=== PATIENT | female | born 1940 | race Caucasian/White ===

== ENCOUNTER 2017-03-19 19:51 | Emergency (ER) | payer MEDICARE ==
[2017-03-19 21:22] LABS: Bilirubin Negative (Negative); Blood, Urine Negative (Negative); Clarity CLEAR (Clear); Glucose, Urine (Dipstick) Negative (Negative); Leukocyte Negative (Negative); Nitrite Negative (Negative); Protein, Urine (Dipstick) Negative (Neg-Trace); Specific Gravity, Urine 1.018 (1.002-1.036); Urobilinogen 0.2 mg/dL (0.2-1.0); pH, Urine 5.5 (5.0-9.0)
[2017-03-19 21:55] LABS: #Basophils 0.1 thou/uL (0.0-0.2)
[2017-03-19] MEDS ORDERED: Ondansetron ODT 4 MG TAB ONE (21:56)
[2017-03-19 22:04] LABS: #Eosinphils 0.1 thou/uL (0.0-0.7); #Lymphocytes 2.6 thou/uL (1.20-3.40); #Monocytes 0.4 thou/uL (0.11-0.59); #Neutrophils 6.8 thou/uL (1.40-6.50); %Basophils 0.9 % (0.0-1.0); %Eosinophils 1.5 % (0.0-10.0); %Lymphocytes 25.9 % (21.0-51.0); %Monocytes 4.4 % (0.0-10.0); %Neutrophils 67.3 % (42.0-75.0); Mean Corpuscular Hemoglobin 29.5 pg (27.0-31.0); Mean Corpuscular Volume 92.2 fl (81.0-99.0); Mean Platelet Volume 8.7 fL (7.4-10.4); Platelet Count 249 thou/uL (130-400); RBC Distribution Width 12.7 % (11.5-14.5)
[2017-03-19 22:17] LABS: ALT (SGPT) 11 U/L (8-55); AST (SGOT) 13 U/L (5-34); Albumin 4.4 g/dL (3.4-4.8); Alkaline Phosphatase 126 U/L (40-150); Anion Gap 17 mmol/L (10-20); BUN (Urea Nitrogen) 22 mg/dL (9.8-20.1); Bilirubin, Total 0.3 mg/dL (0.2-1.2); Calc. Creatinine Clearance 0 mL/min (70-130); Carbon Dioxide 26 mmol/L (23-31); Chloride 102 mmol/L (98-107); Estimated GFR-MDRD 18; Globulin 3.2 g/dL (2.4-3.5); Glucose 105 mg/dL (83-110); Potassium 3.8 mmol/L (3.5-5.1); Protein, Total 7.6 g/dL (6.0-8.3); Sodium 141 mmol/L (136-145)
== END 2017-03-19 23:00 | disposition left against medical advice (07) ==
LOC: ERS 19:51
DX: Z53.21 Procedure and treatment not carried out due to patient leaving prior to being seen by health care provider (principal)
CPT/HCPCS: 36415; 80053; 81003; 85025; Q0162

== ENCOUNTER 2018-09-18 17:28 | Emergency (ER) | payer MEDICARE ==
[2018-09-18 18:56] LABS: #Eosinphils 0.2 thou/uL (0.0-0.7); #Lymphocytes 1.9 thou/uL (1.20-3.40); #Monocytes 0.4 thou/uL (0.11-0.59); #Neutrophils 7.4 thou/uL (1.40-6.50); %Basophils 0.4 % (0.0-1.0); %Eosinophils 1.6 % (0.0-10.0); %Monocytes 4.4 % (0.0-10.0); %Neutrophils 74.5 % (42.0-75.0); Hemoglobin 13.5 g/dL (12.0-16.0); Mean Corpuscular HGB CONC 31.6 g/dL (32.0-36.0); Mean Corpuscular Volume 91.8 fL (78.0-98.0); Mean Platelet Volume 8.4 fL (7.4-10.4); Platelet Count 221 thou/uL (130-400); RBC Distribution Width 12.3 % (11.5-14.5); Red Blood Cell (RBC) Count 4.67 mill/uL (4.20-5.40); White Blood Cell (WBC) Count 9.9 thou/uL (4.8-10.8)
[2018-09-18 19:20] LABS: ALT (SGPT) 8 U/L (8-55); AST (SGOT) 11 U/L (5-34); Albumin 3.9 g/dL (3.4-4.8); Alkaline Phosphatase 107 U/L (40-150); Anion Gap 12 mmol/L (10-20); BUN (Urea Nitrogen) 26 mg/dL (9.8-20.1); Bilirubin, Total 0.2 mg/dL (0.2-1.2); Calc. Creatinine Clearance 0 mL/min (70-130); Calcium 9.7 mg/dL (7.8-10.44); Carbon Dioxide 25 mmol/L (23-31); Chloride 107 mmol/L (98-107); Estimated GFR-MDRD 27; Globulin 2.6 g/dL (2.4-3.5); Glucose 93 mg/dL (83-110); Protein, Total 6.5 g/dL (6.0-8.3); Sodium 140 mmol/L (136-145)
[2018-09-18] MEDS ORDERED: HYDROcodone/Acetaminophen 5/325 mg Tablet ONE (19:38)
--- NOTE | 2018-09-18 19:48 | ULT ---
VENOUS DOPPLER ULTRASOUND OF THE RIGHT LOWER EXTREMITY: 09/18/18 HISTORY: Right lower extremity pain. TECHNIQUE: Morales scale ultrasound with color flow and spectral Doppler imaging of the deep venous system of the r ight lower extremity was performed. FINDINGS: There is good flow, compression, and augmentation noted in the right common femoral, femoral, deep fe moral, popliteal, posterior tibial, peroneal and greater saphenous veins. IMPRESSION: No evidence of DVT in the right lower extremity. POS: [facility]
== END 2018-09-18 20:57 | disposition home or self-care (01) ==
LOC: ERS 17:28
DX: M79.661 Pain in right lower leg (principal); I10 Essential (primary) hypertension; F17.210 Nicotine dependence, cigarettes, uncomplicated; F41.9 Anxiety disorder, unspecified; Z79.899 Other long term (current) drug therapy
CPT/HCPCS: 36415; 80053; 85025

== ENCOUNTER 2018-11-25 10:27 | Outpatient (CLI) | payer MEDICARE ==
--- NOTE | 2018-11-25 14:18 | ULT ---
RENAL ULTRASOUND WITH DOPPLER EVALUATION: HISTORY: Chronic renal disease. TECHNIQUE: Real-time imaging of the right and left kidneys was performed. FINDINGS: The right kidney measures 12.4 cm in size and the left kidney measures approximately 9 cm in size. T he kidneys are of increased echogenicity and show multiple bilateral renal cysts. The largest on the left is in the 10 cm range. Multiple large exophytic cysts are also seen on the right, the largest in the 8 cm range. No obstruction of either kidney. Doppler evaluation with spectral analysis shows the right renal artery velocity measurements are 166 cm per second and on the left are 75 cm per second. Aortic velocities are 84 cm per second. The res istive index on the right is 0.62 and on the left is 0.63. IMPRESSION: 1. Mildly elevated velocities of the right renal artery but resistive indexes are within the normal range. 2. Increased echogenicity to both kidneys, both of which are very difficult to visualized due to the presence of large exophytic cysts. This makes the Doppler evaluation very difficult and assessment of the kidneys also difficult. There is increased echogenicity to the cortex of both kidneys, sugges ting underlying chronic medical renal parenchymal disease. POS: OFF
== END 2018-11-25 10:28 | disposition home or self-care (01) ==
LOC: ULT 10:27
PROVIDERS: ATTEND Internal Medicine Nephrology
DX: I12.9 Hypertensive chronic kidney disease with stage 1 through stage 4 chronic kidney disease, or unspecified chronic kidney disease (principal); N18.4 Chronic kidney disease, stage 4 (severe); N28.89 Other specified disorders of kidney and ureter
CPT/HCPCS: 76700; 76770

== ENCOUNTER 2019-07-10 15:58 | Emergency (ER) | payer MEDICARE ==
[~2019-07-10 15:58] MED LIST: Iopamidol-370 76% 500 ML 1 ML ONE
[2019-07-10] MEDS ORDERED: Magnesium 2 GM/50 ML BAG (IN WATER) ONE (16:44)
[2019-07-10] MEDS ORDERED: Dexamethasone 4 mg/ml Vial ONE (16:44)
--- NOTE | 2019-07-10 16:46 | RAD ---
PORTABLE CHEST ONE VIEW: 07/10/19 at 4:02 p.m. HISTORY: Shortness of breath. FINDINGS: The heart size is normal. The aorta is tortuous. The lungs are well expanded without lobar consolidat ion, pneumothoraces, or pleural effusions. IMPRESSION: No radiographic evidence of acute cardiopulmonary process. POS: [facility]
[2019-07-10 16:50] LABS: #Basophils 0.1 thou/uL (0.0-0.2); #Eosinphils 0.1 thou/uL (0.0-0.7); #Lymphocytes 1.9 thou/uL (1.20-3.40); #Monocytes 0.5 thou/uL (0.11-0.59); #Neutrophils 7.9 thou/uL (1.40-6.50); %Basophils 0.6 % (0.0-1.0); %Eosinophils 1.3 % (0.0-10.0); %Monocytes 4.7 % (0.0-10.0); %Neutrophils 75.4 % (42.0-75.0); Hemoglobin 15.2 g/dL (12.0-16.0); Mean Corpuscular HGB CONC 32.7 g/dL (32.0-36.0); Mean Corpuscular Hemoglobin 29.7 pg (27.0-31.0); Mean Corpuscular Volume 90.9 fL (78.0-98.0); Mean Platelet Volume 8.8 fL (7.4-10.4); Platelet Count 243 thou/uL (130-400); RBC Distribution Width 12.2 % (11.5-14.5); Red Blood Cell (RBC) Count 5.11 mill/uL (4.20-5.40); White Blood Cell (WBC) Count 10.5 thou/uL (4.8-10.8)
[2019-07-10 17:12] LABS: ALT (SGPT) 8 U/L (8-55); AST (SGOT) 13 U/L (5-34); Albumin 4.3 g/dL (3.4-4.8); Alkaline Phosphatase 123 U/L (40-110); Anion Gap 18 mmol/L (10-20); BUN (Urea Nitrogen) 20 mg/dL (9.8-20.1); Bilirubin, Total 0.4 mg/dL (0.2-1.2); CK (CPK) 29 U/L (29-168); Calc. Creatinine Clearance 0 mL/min (70-130); Calcium 10.8 mg/dL (7.8-10.44); Carbon Dioxide 23 mmol/L (23-31); Chloride 101 mmol/L (98-107); Estimated GFR-MDRD 30; Globulin 2.8 g/dL (2.4-3.5); Glucose 101 mg/dL (83-110); Lipase 94 U/L (8-78); Potassium 3.1 mmol/L (3.5-5.1); Protein, Total 7.1 g/dL (6.0-8.3); Sodium 139 mmol/L (136-145)
--- NOTE | 2019-07-10 19:04 | CT ---
CTA CHEST WITH CONTRAST: 07/10/19 Axial tomograms obtained following a pulmonary angio protocol with multiplanar reconstruction and 3D postprocessing. INDICATIONS: History of COPD. Shortness of breath and chest pain. Assess for pulmonary embolus. FINDINGS: Pulmonary arteries show adequate opacification. No evidence of pulmonary embolus identified. The lungs show mild hyperexpansion. Mild interstitial thickening seen in the periphery of both lungs which appear chronic. No infiltrate or effusion. The thoracic aorta shows atherosclerotic change. No evidence of dissection. The mediastinum is unremarkable with nonspecific lymph nodes. There is an enlarged precarinal lymph n ode which measures up to 1.5 cm. Images through the upper abdomen revealed numerous large bilateral renal cystic lesions which have be en described previously. IMPRESSION: 1. No evidence of pulmonary embolus. 2. No acute lung infiltrate. 3. Chronic lung parenchymal changes. 4. Large bilateral renal cystic lesions are partially imaged and have been described previously. 5. Nonspecific mediastinal lymph nodes. POS: [facility]
--- NOTE | 2019-07-11 14:33 | EKG ---
Test Reason : Blood Pressure : / mmHG Vent. Rate : 066 BPM Atrial Rate : 066 BPM P-R Int : 120 ms QRS Dur : 080 ms QT Int : 442 ms P-R-T Axes : 054 005 060 degrees QTc Int : 463 ms Sinus rhythm with Premature atrial complexes Nonspecific ST and T wave abnormality Prolonged QT Abnormal ECG Confirmed by JUNO BLACKWELL, KAMI ([id number]), editor newspaper PREETI HALE ([id number]) on 07/11/2019 2:33:11 PM Referred By: Confirmed By:KAMI FRAIRE MD
== END 2019-07-10 19:07 | disposition home or self-care (01) ==
LOC: ERS 15:58
DX: J44.1 Chronic obstructive pulmonary disease with (acute) exacerbation (principal); R59.0 Localized enlarged lymph nodes; I12.9 Hypertensive chronic kidney disease with stage 1 through stage 4 chronic kidney disease, or unspecified chronic kidney disease; N18.3 Chronic kidney disease, stage 3 (moderate); E78.5 Hyperlipidemia, unspecified; E78.00 Pure hypercholesterolemia, unspecified; M19.90 Unspecified osteoarthritis, unspecified site; F17.210 Nicotine dependence, cigarettes, uncomplicated; F41.9 Anxiety disorder, unspecified; Z79.899 Other long term (current) drug therapy
CPT/HCPCS: 36415; 71045; 71275; 80053; 82550; 83690; 83880; 84484; 85025; 85379; 93005; 96365; 96375; J1100; J3475; Q9967

== ENCOUNTER 2019-07-31 19:08 | Emergency (ER) | payer MEDICARE ==
[2019-07-31] MEDS ORDERED: traMADol HCl 50 MG TAB ONE (21:53)
== END 2019-07-31 22:38 | disposition home or self-care (01) ==
LOC: ERS 19:08
DX: S46.911A Strain of unspecified muscle, fascia and tendon at shoulder and upper arm level, right arm, initial encounter (principal); E78.00 Pure hypercholesterolemia, unspecified; E78.5 Hyperlipidemia, unspecified; N18.3 Chronic kidney disease, stage 3 (moderate); I12.9 Hypertensive chronic kidney disease with stage 1 through stage 4 chronic kidney disease, or unspecified chronic kidney disease; M19.90 Unspecified osteoarthritis, unspecified site; F41.9 Anxiety disorder, unspecified; F17.210 Nicotine dependence, cigarettes, uncomplicated; X58.XXXA Exposure to other specified factors, initial encounter
CPT/HCPCS: 93005